=== PATIENT | female | born 1935 | race Caucasian/White ===

== ENCOUNTER → 2021-07-02 10:33 | Outpatient (CLI) | payer MEDICARE, SELFPAY ==
--- NOTE | 2021-07-02 | DI.RAD.S_ITS ---
PROCEDURE: XR HUMERUS LT 2V INDICATIONS: Left Arm Pain TECHNIQUE: 2 views of the humerus were acquired. COMPARISON: None. FINDINGS: Bones: No acute fractures or dislocations. No suspicious bony lesions. Degenerative changes are seen in the acromioclavicular joint. A chronic appearing ossification is seen superior to the radial head on lateral view and there is mild irregularity of the capitellum, possibly secondary to a remote prior injury. Soft tissues: No suspicious soft tissue calcifications. 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 Further characterization could be obtained with a dedicated MRI or CT of the elbow. No acute osseous abnormality identified. Dictated by: Michael Mejía M.D. on 07/02/2021 at 12:14 Approved by: Michael Mejía M.D. on 07/02/2021 at 12:17
--- NOTE | 2021-07-02 | DI.RAD.S_ITS ---
PROCEDURE: XR ELBOW LT MIN 3V INDICATIONS: Left Arm Pain TECHNIQUE: 3 views of the elbow were acquired. COMPARISON: [facility], CR, XR HUMERUS LT 2V, 07/02/2021, 10:39. FINDINGS: Bones: A chronic appearing ossification superior to the radial head seen on lateral view with mild irregularity of the capitellum is seen possibly remodeling secondary to a remote prior injury. Soft tissues: No elbow joint effusion. No suspicious soft tissue calcifications. IMPRESSION: Chronic appearing irregularity of the capitellar articular surface with an abnormal ossification projecting anteriorly from the distal humerus. Further characterization could be obtained with dedicated MRI or CT of the elbow. No acute abnormality identified. Dictated by: Allen Murillo M.D. on 07/02/2021 at 15:49 Approved by: Allen Murillo M.D. on 07/02/2021 at 15:51
== END ==
PROVIDERS: PCP Student in an Organized Health Care Education/Training Program; Referring Provider Student in an Organized Health Care Education/Training Program; Visit Provider Student in an Organized Health Care Education/Training Program
DX: M79.602 Pain in left arm (principal)
CPT/HCPCS: 73060; 73080